=== PATIENT | male | born 1950 | race Caucasian/White ===

== ENCOUNTER 2019-12-20 10:20 | Emergency (ER) | payer MEDICARE ==
[2019-12-20] MEDS ORDERED: DULOXETINE HCL60 MG PO (19:09)
[2019-12-20] MEDS ORDERED: LOPRESSOR 550 MG/TAB PO (19:10)
[2019-12-20] MEDS ORDERED: QUETIAPINE FUM100 MG PO (19:11)
[2019-12-20] MEDS ORDERED: ALPRAZOLAM0.5 M2 PO (19:13)
[2019-12-20] MEDS ORDERED: FUROSEMIDE20 MG PO (19:13)
[2019-12-20] MEDS ORDERED: ROSUVASTATIN CA40 MG PO (19:14)
[2019-12-20] MEDS ORDERED: TRAMADOL HCL200 MG PO (19:20)
[2019-12-20 20:32] VITALS: BP 146/71
== END 2019-12-20 21:00 ==
LOC: ED 10:20 → ED-I 18:15 → ED 18:31
PROC: 0SWBXJZ Revision of Synthetic Substitute in Left Hip Joint, External Approach (ICD-10-PCS; principal; 2019-12-20)
DX: T84.021A Dislocation of internal left hip prosthesis, initial encounter (principal); Y83.1 Surgical operation with implant of artificial internal device as the cause of abnormal reaction of the patient, or of later complication, without mention of misadventure at the time of the procedure; Z96.642 Presence of left artificial hip joint

== ENCOUNTER 2020-02-14 09:20 | Emergency (ER) | payer MEDICARE ==
[~2020-02-14] VITALS: Ht 165.1 cm; Wt 75.0 kg
[~2020-02-14 09:20] MED LIST: ALPRAZOLAM0.5 M2 PO; DULOXETINE HCL60 MG PO; FUROSEMIDE20 MG PO; LOPRESSOR 550 MG/TAB PO; QUETIAPINE FUM100 MG PO; ROSUVASTATIN CA40 MG PO; TRAMADOL HCL200 MG PO
[2020-02-14 12:00] VITALS: BP 128/70
== END 2020-02-14 12:00 ==
LOC: ED 09:20
DX: T84.021A Dislocation of internal left hip prosthesis, initial encounter (principal); I11.0 Hypertensive heart disease with heart failure; I50.9 Heart failure, unspecified; I25.10 Atherosclerotic heart disease of native coronary artery without angina pectoris; J44.9 Chronic obstructive pulmonary disease, unspecified; Y83.1 Surgical operation with implant of artificial internal device as the cause of abnormal reaction of the patient, or of later complication, without mention of misadventure at the time of the procedure; Z96.642 Presence of left artificial hip joint

== ENCOUNTER 2022-06-12 12:13 | Emergency (ER) | payer MEDICARE ==
[2022-06-12] VITALS (108 sets, daily range): BP systolic 103–157; BP diastolic 47–113
[~2022-06-12] VITALS: Ht 165.1 cm; Wt 76.0 kg
[2022-06-12 13:24] LABS: HEMATOCRIT 33.6 % (39.0-50.0); MEAN CELL VOLUME 104.7 fL CALC (80.0-100.0); MEAN CORPUSCULAR HGB 35.5 pG CALC (26.0-32.0); MEAN CORPUSCULAR HGB CONC 33.9 g/dL CAL (32.0-36.0); NEUT# 3.66 thou/uL (1.82-7.42); RED BLOOD COUNT 3.21 mill/uL (4.70-6.10); RED CELL DISTRI WIDTH 12.2 % (11.5-15.5)
[2022-06-12 13:25] LABS: HEMOGLOBIN 11.4 g/dl (14.0-18.0)
[2022-06-12 13:42] LABS: ALBUMIN 4.3 g/dL (3.2-5.0); ALKALINE PHOSPHATASE 80 u/l (38-126); ANION GAP 13 (6-22 (CALC)); BILIRUBIN, TOTAL 0.4 mg/dL (0.0-1.4); BUN 21 mg/dL (8-23); BUN/CREATININE RATIO 18 (12-20 (CALC)); CARBON DIOXIDE 25 mmol/l (22-30); CHLORIDE 106 mmol/l (95-108); CREATININE 1.1 mg/dL (0.7-1.3); GFR FOR AFR.AMER. > 60 ML/MIN (>=60 (CALC)); GFR OTHER RACES > 60 ML/MIN (>=60 (CALC)); SGOT/AST 64 u/l (19-48); SODIUM 140 mmol/l (137-146); TOTAL PROTEIN 7.5 g/dL (6.3-8.2)
[2022-06-13] VITALS (20 sets, daily range): BP systolic 113–143; BP diastolic 61–114
== END 2022-06-13 06:40 ==
LOC: ED 12:13
PROVIDERS: Nurse Practitioner
PROC: 0SWBXJZ Revision of Synthetic Substitute in Left Hip Joint, External Approach (ICD-10-PCS; principal; 2022-06-12)
DX: T84.021A Dislocation of internal left hip prosthesis, initial encounter (principal); I11.0 Hypertensive heart disease with heart failure; I50.9 Heart failure, unspecified; I25.10 Atherosclerotic heart disease of native coronary artery without angina pectoris; J44.9 Chronic obstructive pulmonary disease, unspecified; W06.XXXA Fall from bed, initial encounter; Y92.003 Bedroom of unspecified non-institutional (private) residence as the place of occurrence of the external cause; Z96.642 Presence of left artificial hip joint; Z20.822 Contact with and (suspected) exposure to COVID-19